=== PATIENT | male | born 1965 | race Caucasian/White ===

== ENCOUNTER 2016-11-05 14:08 | Observation (INO) | payer OTHER ==
--- NOTE | ~2016-11-05 | HP ---
Unit #: [id number] #: [id number] Patient: MARIBETH REECE [id number] [address] [address] [id number] MR#: [id number] NAME: MARIBETH REECE. ROOM: 558 Age: 51 Sex: M Admission Date: 11/05/2016 : 1965 Attending Physician: Anastasiia Rivera M.D. Primary Care Physician: Diana Coronado M.D. HISTORY AND PHYSICAL CHIEF COMPLAINT Low blood sugar. HISTORY OF PRESENT ILLNESS The patient is a 51-year-old male with history of diabetes brought to the emergency room with low sugars. The patient stated the patient took the NovoLog and insulin approximately close together, at 9:30 and the other one at 10 o'clock and it made the blood sugar to go down to 36. The patient received D50 in the emergency room and the sugar is up to sixties. The patient is being admitted for the above reasons. The patient denies any nausea, vomiting, chest pain, diaphoresis, dizziness. PAST MEDICAL HISTORY History of hypertension, IBS, hyperlipidemia, diabetes. PAST SURGICAL HISTORY (1) x5, colonoscopy. SOCIAL HISTORY The patient smokes a pack of cigarettes in two weeks and denies any alcohol or any illicit drug abuse. FAMILY HISTORY No history of diabetes. ALLERGIES No known drug allergies. HOME MEDICATIONS 1. Bentyl. 2. Lantus. 3. NovoLog. 4. Lipitor. 5. Lyrica. 6. Omeprazole. 7. Tramadol. REVIEW OF SYMPTOMS A 14-point review of systems was performed and only pertinent positive findings are described above. Remaining are negative. PHYSICAL EXAMINATION GENERAL APPEARANCE: The patient is lying on the bed, not in acute distress. Unit #: [id number] #: [id number] Patient: MARIBETH REECE VITAL SIGNS: Temperature 98.2. Pulse 107. Respiration 18. Sating 100%. Blood pressure 99/71. HEENT: Head: Atraumatic, normocephalic. ENT: Pupils equal, round, reacting to light and accommodation. Extraocular movements are intact. NECK: Supple. LUNGS: Decreased air entry at the bases. HEART: Regular rate and rhythm. ABDOMEN: Soft. Positive bowel sounds. EXTREMITIES: No cyanosis. No clubbing. NEUROLOGIC: Alert, awake, oriented. No gross focal motor deficit. DIAGNOSTIC STUDIES LABORATORY: Glucose 91. WBC 10.2, hemoglobin 14.7, hematocrit 44.2, platelets 154. INR one. Sodium 136, potassium 3, chloride 102, bicarb 29, glucose 70, BUN 16, creatinine 0.8, AST 23, ALT 24, alkaline phosphatase 77. Lipase 45. Glucose 38. Lipase 40. Troponin less than 0.05. ASSESSMENT 1. Hypoglycemia. 2. Hypokalemia. PLAN To admit the patient to observation. The patient will receive IV fluids at D50 half, Accu-Cheks and low dose sliding scale and we will hold the NovoLog and Lantus and replace the potassium per protocol and further recommendations will follow. Dictated by Britt Vallecillo TD: 11/06/2016 11:35 JOB #: [id number] HISTORY AND PHYSICAL Page 1 of 1 X MARIA DE JESUS OBRIEN MD X HISTORY AND PHYSICAL
--- NOTE | ~2016-11-05 | DS ---
Unit #: [id number] #: [id number] Patient: MARIBETH REECE [id number] [address] [place], [place] [address] [id number] MR#: [id number] NAME: MARIBETH REECE. ROOM: 558 Age: 51 Sex: M Admission Date: 11/05/2016 : 1965 Discharge Date: 11/06/2016 Attending Physician: Anastasiia Rivera M.D. Primary Care Physician: Diana Coronado M.D. DISCHARGE SUMMARY REASON FOR ADMISSION Hypoglycemia, mental status change at home. HISTORY OF PRESENT ILLNESS/HOSPITAL COURSE Please refer to H and P for details of initial part of hospital stay. The patient is a 51-year-old male with underlying history of insulin-dependent diabetes. He states that he may have taken his insulin incorrectly the night before. He was found by family members to have mental status change, slurred speech, was subsequently brought to the hospital for further evaluation. Through his hospital course here, he was placed on telemetry floor. Routine laboratory studies were ascertained. His blood sugar was monitored carefully. He had no acute events. His cardiac enzymes were also cycled, and they, too, were negative. His hemoglobin A1C was noted to be 8.4%. At the present time his sugars are fairly stable. His last blood glucose Accu-Cheks was 132. His BMP this morning shows a blood glucose of 168. His electrolytes are normal. He appears clinically stable for discharge home. He will follow up with his primary care physician, Dr. Coronado, in the next 1-2 weeks. At time of discharge will decrease his NovoLog to 5 units t.i.d. with meals, and his Lantus will be decreased to 15 units subcu q.h.s. Further adjustments may be conducted as an outpatient. FINAL DISCHARGE DIAGNOSES 1. Hypoglycemia. 2. Mismanagement of insulin. 3. Diabetes with insulin dependence. 4. History of irritable bowel syndrome. 5. Hyperlipidemia. 6. Prior history of gastroesophageal reflux disease. DISCHARGE MEDICATIONS 1. Lipitor 40 mg p.o. q.h.s. 2. Lyrica 300 mg p.o. b.i.d. 3. Bentyl 10 mg p.o. daily p.r.n. 4. Lantus 15 units subcu q.h.s. 5. NovoLog 5 units t.i.d. with meals. 6. Ultram 50 mg p.o. daily p.r.n. 7. Omeprazole 20 mg p.o. daily. DISCHARGE CONDITION Stable. Unit #: [id number] #: [id number] Patient: MARIBETH REECE DISCHARGE DISPOSITION Home. FOLLOW UP Follow up with PCP in 1-2 weeks. Dictated by... Britt Duque/connie TD: 11/08/2016 08:35 JOB #: [id number] DISCHARGE SUMMARY Page 1 of 1 X Anastasiia Rivera MD X DISCHARGE SUMMARY
[~2016-11-05 14:08] MED LIST: ACTOS PO; AMANTADINE HCL100 MG PO; ASPIRIN; BENTYL10 MG PO; COZAAR PO; FENOFIBRATE160 MG PO; GLUCOTROL PO; INVOKANA100 MG PO; JANUMET 50-501 UDTAB; LEVEMIR SUBQ; LEVEMIR100 U/ML SUBQ; LOMOTIL TABLET1 TAB PO; LOPRESSOR PO; METFORMIN PO; METOPROLOL TAR25 MG PO; NEXIUM; ORAP2 MG; PRILOSEC PO; REMERON PO; SIMVASTATIN40 MG PO; TOPROL XL PO; VICTOZA0.6 MG/0.1; ZOCOR PO; [UNRECOGNIZED DRUG - OTHER]
[2016-11-05 15:10] LABS: BASOPHIL% 0.2 % (0-2.5); EOSINOPHIL% 0.1 % (0.0-7.0); HEMATOCRIT 44.2 % (38.0-50.0); HEMOGLOBIN 14.7 gm/dL (13.0-16.0); LYMPHOCYTE# 0.5 X10e3 (1.0-3.5); LYMPHOCYTE% 4.6 % (17.0-45.0); MEAN CELL VOLUME 96.9 FL (83-96); MEAN CORPUSCULAR HEMOGLOBIN 32.2 PG (28-34); MEAN CORPUSCULAR HGB CONC 33.3 g/dL (30-36); MEAN PLATELET VOLUME 7.1 FL (6.5-11.5); MONOCYTE# 0.6 X10e3 (0-1.0); MONOCYTE% 5.8 % (3.0-12.0); NEUTROPHIL# 9.1 X10e3 (1.5-7.1); NEUTROPHIL% 89.3 % (40-75); PLATELET COUNT 154 X10e3 (140-420); RED BLOOD COUNT 4.57 X10e (3.90-5.60); RED CELL DISTRIBUTION WIDTH 12.7 % (11.0-15.5); WHITE BLOOD COUNT 10.2 X10e3 (4.0-10.5)
[2016-11-05 15:13] LABS: DIFF IND NO
[2016-11-05 15:20] LABS: PARTIAL THROMBOPLASTIN TIME 25.2 SECONDS (23.5-31.3)
[2016-11-05 15:32] LABS: ALBUMIN SERUM 4.2 g/dL (3.5-5.0); BILIRUBIN,TOTAL 0.8 mg/dL (0.2-2.0); CALCIUM SERUM 8.8 mg/dL (8.4-10.2); CREATININE SERUM 0.8 mg/dL (0.6-1.4); GLOM FILT RATE Estimated 102.7 mL/min (>60)
[2016-11-05] MEDS ORDERED: BENTYL10 M1 PO (17:06)
[2016-11-05] MEDS ORDERED: LANTUS SOL100 UNIT/1 SUBQ (17:07)
[2016-11-05] MEDS ORDERED: ATORVASTATIN CA40 MG PO (17:08)
[2016-11-05] MEDS ORDERED: NOVOLOG100 UNITS/ SUBQ (17:08)
[2016-11-05] MEDS ORDERED: LYRICA300 MG PO (17:09)
[2016-11-05] MEDS ORDERED: TRAMADOL HCL50 M1 PO (17:10)
[2016-11-05] MEDS ORDERED: OMEPRAZOLE20 M2 PO (17:10)
[2016-11-05 17:11] LABS: POC - CKMB 1.5 ng/mL (0.0-7.9); POC - TROPONIN <0.05 ng/mL (<=0.05)
[2016-11-06 06:34] LABS: BASOPHIL% 0.5 % (0-2.5); EOSINOPHIL% 0.9 % (0.0-7.0); HEMOGLOBIN 14.4 gm/dL (13.0-16.0); LYMPHOCYTE# 1.5 X10e3 (1.0-3.5); LYMPHOCYTE% 28.3 % (17.0-45.0); MEAN CELL VOLUME 97.6 FL (83-96); MEAN CORPUSCULAR HEMOGLOBIN 31.9 PG (28-34); MEAN CORPUSCULAR HGB CONC 32.7 g/dL (30-36); MEAN PLATELET VOLUME 7.6 FL (6.5-11.5); MONOCYTE# 0.3 X10e3 (0-1.0); MONOCYTE% 6.3 % (3.0-12.0); NEUTROPHIL# 3.4 X10e3 (1.5-7.1); PLATELET COUNT 160 X10e3 (140-420); RED BLOOD COUNT 4.51 X10e (3.90-5.60); RED CELL DISTRIBUTION WIDTH 12.6 % (11.0-15.5); WHITE BLOOD COUNT 5.3 X10e3 (4.0-10.5)
[2016-11-06 06:40] LABS: DIFF IND NO
[2016-11-06 07:28] LABS: BUN/CREATININE RATIO 13.75; CALCIUM SERUM 8.9 mg/dL (8.4-10.2); CREATININE SERUM 0.8 mg/dL (0.6-1.4); GLOM FILT RATE Estimated 102.7 mL/min (>60)
[2017-02-10] MEDS ORDERED: PIOGLITAZONE HC45 MG PO (12:15)
== END 2016-11-06 13:47 | disposition home or self-care (01) ==
LOC: CED 14:08 → CEDOF 16:49 → CED 17:01 → C5B 21:51 → CEDOF 21:51 → C5B 11-06 05:59
PROVIDERS: Emergency Medicine; Internal Medicine
DX: E11.649 Type 2 diabetes mellitus with hypoglycemia without coma (principal); Z79.4 Long term (current) use of insulin; E78.5 Hyperlipidemia, unspecified; E87.6 Hypokalemia; F17.210 Nicotine dependence, cigarettes, uncomplicated; K21.9 Gastro-esophageal reflux disease without esophagitis; K58.9 Irritable bowel syndrome, unspecified
CPT/HCPCS: 36415; 80048; 80053; 82553; 82947; 83036; 83690; 84484; 85025; 85610; 85730; 96374; 96375; 99285; G0378; J0500